=== PATIENT | male | born 1965 | race Caucasian/White ===

== ENCOUNTER 2023-10-31 10:45 | Inpatient (IN) | payer BC ==
[2023-10-31 11:53] LABS: ALT 18 U/L (4-49); AST 22 U/L (17-59); African American GFR (CKD) >90 (>60 ml/min/1.73 sqM); Alkaline Phosphatase 85 U/L (38-126); Anion Gap 9 mmol/L; Blood Urea Nitrogen 14 mg/dL (9-20); Calcium 8.7 mg/dL (8.4-10.2); Carbon Dioxide 23 mmol/L (22-30); Chloride 107 mmol/L (98-107); Glucose 97 mg/dL (74-99); Magnesium 2.1 mg/dL (1.6-2.3); Non-African American GFR(CKD) >90 (>60 ml/min/1.73 sqM); Sodium 139 mmol/L (137-145); Total Bilirubin 0.5 mg/dL (0.2-1.3)
--- NOTE | 2023-10-31 12:12 | CT ---
EXAMINATION TYPE: CT brain wo con DATE OF EXAM: 10/31/2023 COMPARISON: None HISTORY: double vison, weakness x3 days CT DLP: 1118.[address] of the brain was performed. The ventricles, basal cisterns and sulci overlying the cerebral convexities demonstrate mild enlargem ent. There is no evidence for intracranial hemorrhage or sulcal effacement. There is decreased attenuation about the periventricular white matter and deep white matter of both c erebral hemispheres, compatible with chronic small vessel ischemia. Differential diagnosis does inclu de demyelination. No mass effects are seen.No midline shift. Osseous calvarium is intact. If symptoms persist consider MRI. IMPRESSION: 1. Age related atrophic and chronic small vessel ischemic change without acute intracranial process s een at this time.
[2023-10-31 12:19] LABS: HCT 46.6 % (39.0-53.0); HGB 16.3 gm/dL (13.0-17.5); MCH 32.9 pg (25.0-35.0); MCV 93.9 fL (80.0-100.0); Mean Platelet Volume 7.8; Platelet Count 167 k/uL (150-450); RBC 4.96 m/uL (4.30-5.90); RDW 12.7 % (11.5-15.5); WBC 5.3 k/uL (3.8-10.6)
--- NOTE | 2023-10-31 12:41 | ED ---
General Adult HPI - General Chief complaint: Recheck/Abnormal Lab/Rx Stated complaint: High BP, Dizziness Time Seen by Provider: 10/31/23 10:51 Source: patient, RN notes reviewed Mode of arrival: ambulatory Limitations: no limitations - History of Present Illness Initial comments: 58-year-old male presents emergency department from PCPs office for concerns of double vision, URI symptoms, possible high blood pressure. Patient states he does have a history of high blood pressure not on any current medications. He states has been sick over last 1 week in which she states he started developing double vision over the last several days he has noticed when he looks to the left it resolves if he closes his right eye it is not as notable. Patient denie s any current headache, head pressure or any focal weakness he states he has some generalized weakness associated with his URI. Patient states he talked to his PCP regarding his vision disturbance and history of high blood pressure sent over here for evaluation. - Related Data Home Medications Medication Instructions Recorded Confirmed Ascorbic Acid [Vitamin C] 1,000 mg PO DAILY 10/31/23 10/31/23 Cold/Flu Otc(Unknown) 1 tab PO Q6H PRN 10/31/23 10/31/23 Dm/PE/Acetaminophen/Doxylamine 1 cap PO Q6H PRN 10/31/23 10/31/23 [[facility] [facility] Day-Night Cp] Allergies Allergy/AdvReac Type Severity Reaction Status Date / Time No Known Allergies Allergy Verified 10/31/23 12:38 Review of Systems ROS Statement: Those systems with pertinent positive or pertinent negative responses have been documented in the HPI. ROS Other: All systems not noted in ROS Statement are negative. Past Medical History Past Medical History: Hypertension, Rheumatoid Arthritis (RA) Additional Past Medical History / Comment(s): hypoglycemia History of Any Multi-Drug Resistant Organisms: None Reported Past Surgical History: Ear Surgery Additional Past Surgical History / Comment(s): rt ear x 2 Past Anesthesia/Blood Transfusion Reactions: Previous Problems w/ Anesthesia Additional Past Anesthesia/Blood Transfusion Reaction / Comment(s): woke up during surgery Past Psychological History: No Psychological Hx Reported Smoking Status: Current every day smoker Past Alcohol Use History: Occasional Past Drug Use History: None Reported - Past Family History Mother Family Medical History: No Reported History General Exam Limitations: no limitations General appearance: alert, in no apparent distress Head exam: Present: atraumatic, normocephalic, normal inspection Eye exam: Present: normal appearance, PERRL, EOMI. Absent: scleral icterus, conjunctival injection, periorbital swelling ENT exam: Present: normal exam, normal oropharynx, mucous membranes moist Neck exam: Present: normal inspection, full ROM. Absent: tenderness, meningismus, lymphadenopathy Respiratory exam: Present: normal lung sounds bilaterally. Absent: respiratory distress, wheezes, rales, rhonchi, stridor Cardiovascular Exam: Present: regular rate, normal rhythm, normal heart sounds. Absent: systolic murmur, diastolic murmur, rubs, gallop, clicks GI/Abdominal exam: Present: soft, normal bowel sounds. Absent: distended, tenderness, guarding, rebound, rigid Neurological exam: Present: alert, oriented X3, CN II-XII intact, reflexes normal, other (NIH 0, GCS 15). Absent: motor sensory deficit Skin exam: Present: warm, dry, intact, normal color. Absent: rash Course Vital Signs 10/31/23 10/31/23 10/31/23 10:47 11:26 13:00 Temperature 98.8 F Pulse Rate 109 H 101 H 102 H Pulse Rate [ 101 H [employer] ] Respiratory 22 18 18 Rate Blood Pressure 157/79 150/92 140/80 O2 Sat by Pulse 96 95 95 Oximetry 10/31/23 10/31/23 10/31/23 14:54 15:03 16:19 Temperature Pulse Rate 104 H 104 H 96 Pulse Rate [ [employer] ] Respiratory 18 16 18 Rate Blood Pressure 145/91 147/96 155/106 O2 Sat by Pulse 95 96 94 L Oximetry 10/31/23 17:49 Temperature Pulse Rate 88 Pulse Rate [ [employer] ] Respiratory 16 Rate Blood Pressure 142/79 O2 Sat by Pulse 95 Oximetry EKG Findings - EKG Comments: EKG Findings:: EKG performed at 11: 42 sinus rhythm with a rate of 95 NE 160 QRS 116 QT/QTc 348/401 - EKG Results: EKG: interpreted by BALJIT Medical Decision Making - Medical Decision Making Was pt. sent in by a medical professional or institution (, PA, MEDICAL COST CONSULTANT, urgent care, hospital, or detention...) When possible be specific @ -No Did you speak to anyone other than the patient for history (EMS, parent, family, police, friend...)? What history was obtained from this source @ -No Did you review nursing and triage notes (agree or disagree)? Why? @ -I reviewed and agree with nursing and triage notes Were old charts reviewed (outside hosp., previous admission, EMS record, old EKG, old radiological studies, urgent care reports/EKG's, detention records)? Report findings @ -No old charts were reviewed Differential Diagnosis (chest pain, altered mental status, abdominal pain women, abdominal pain men, vaginal bleeding, weakness, fever, dyspnea, syncope, headache, dizziness, GI bleed, back pain, seizure, CVA, palpatations, mental he alth, musculoskeletal)? @ -[CVA, TIA, nerve palsy, diplopia, intracranial hemorrhage EKG interpreted by me (3pts min.). @ -As above X-rays interpreted by me (1pt min.). @ -None done CT interpreted by me (1pt min.). @ -[CT brain showing no acute intracranial hemorrhage or mass effect U/S interpreted by me (1pt. min.). @ -None done What testing was considered but not performed or refused? (CT, X-rays, U/S, labs)? Why? @ -None What meds were considered but not given or refused? Why? @ -None Did you discuss the management of the patient with other professionals (professionals i.e. , PA, MEDICAL COST CONSULTANT, lab, RT, psych nurse, social media analyst, check inspector, teacher, senior major gifts officer, case management social worker)? Give summary @ -[Dr. Lai for admission with consult to neurology to rule out CVA Was smoking cessation discussed for >3mins.? @ -No Was critical care preformed (if so, how long)? @ -No Were there social determinants of health that impacted care today? How? (Homelessness, low income, unemployed, alcoholism, drug addiction, transportation, low edu. Level, literacy, decrease access to med. care, alf, rehab)? @ -No Was there de-escalation of care discussed even if they declined (Discuss DNR or withdrawal of care, Hospice)? DNR status @ -No What co-morbidities impacted this encounter? (DM, HTN, Smoking, COPD, CAD, Cancer, CVA, ARF, Chemo, Hep., AIDS, mental health diagnosis, sleep apnea, morbid obesity)? @ -Hypertension] Was patient admitted / discharged? Hospital course, mention meds given and route, prescriptions, significant lab abnormalities, going to OR and other pertinent info. @ -[Admitted for evaluation for neurology secondary concern of CVA causing patient's diplopia patient has no acute findings on blood work, CT Undiagnosed new problem with uncertain prognosis? @ -No Drug Therapy requiring intensive monitoring for toxicity (Heparin, Nitro, Insulin, Cardizem)? @ -No Were any procedures done? @ -No Diagnosis/symptom? @ -Diplopia, CVA Acute, or Chronic, or Acute on Chronic? @ -Acute Uncomplicated (without systemic symptoms) or Complicated (systemic symptoms)? @ -[Complicated Side effects of treatment? @ -No Exacerbation, Progression, or Severe Exacerbation? @ -No Poses a threat to life or bodily function? How? (Chest pain, [place], [place], pneumonia, PE, COPD, DKA, ARF, appy, cholecystitis, CVA, Diverticulitis, Homicidal, Suicidal, threat to staff... and all critical care pts) @ -No - Lab Data Result diagrams: 10/31/23 11:36 10/31/23 11:36 Lab Results 10/31/23 10/31/23 10/31/23 Range/Units 11:36 11:36 11:36 WBC 5.3 (3.8-10.6) k/uL RBC 4.96 (4.30-5.90) m/uL Hgb 16.3 (13.0-17.5) gm/dL Hct 46.6 (39.0-53.0) % MCV 93.9 (80.0-100.0) fL MCH 32.9 (25.0-35.0) pg MCHC 35.0 (31.0-37.0) g/dL RDW 12.7 (11.5-15.5) % Plt Count 167 (150-450) k/uL MPV 7.8 Neutrophils % (Manual) 53 % Band Neuts % (Manual) 2 % Lymphocytes % (Manual) 40 % Monocytes % (Manual) 5 % Neutrophils # (Manual) 2.90 (1.3-7.7) k/uL Lymphocytes # (Manual) 2.12 (1.0-4.8) k/uL Monocytes # (Manual) 0.27 (0-1.0) k/uL Nucleated RBCs 0 (0-0) /100 WBC Manual Slide Review Performed Sodium 139 (137-145) mmol/L Potassium 4.0 (3.5-5.1) mmol/L Chloride 107 (98-107) mmol/L Carbon Dioxide 23 (22-30) mmol/L Anion Gap 9 mmol/L BUN 14 (9-20) mg/dL Creatinine 0.73 (0.66-1.25) mg/dL Est GFR (CKD-EPI)AfAm >90 (>60 ml/min/1.73 sqM) Est GFR (CKD-EPI)NonAf >90 (>60 ml/min/1.73 sqM) Glucose 97 (74-99) mg/dL Calcium 8.7 (8.4-10.2) mg/dL Magnesium 2.1 (1.6-2.3) mg/dL Total Bilirubin 0.5 (0.2-1.3) mg/dL AST 22 (17-59) U/L ALT 18 (4-49) U/L Alkaline Phosphatase 85 (38-126) U/L Troponin I <0.012 (0.000-0.034) ng/mL Total Protein 7.0 (6.3-8.2) g/dL Albumin 4.0 (3.5-5.0) g/dL TSH (0.465-4.680) mIU/L 10/31/23 Range/Units 11:36 WBC (3.8-10.6) k/uL RBC (4.30-5.90) m/uL Hgb (13.0-17.5) gm/dL Hct (39.0-53.0) % MCV (80.0-100.0) fL MCH (25.0-35.0) pg MCHC (31.0-37.0) g/dL RDW (11.5-15.5) % Plt Count (150-450) k/uL MPV Neutrophils % (Manual) % Band Neuts % (Manual) % Lymphocytes % (Manual) % Monocytes % (Manual) % Neutrophils # (Manual) (1.3-7.7) k/uL Lymphocytes # (Manual) (1.0-4.8) k/uL Monocytes # (Manual) (0-1.0) k/uL Nucleated RBCs (0-0) /100 WBC Manual Slide Review Sodium (137-145) mmol/L Potassium (3.5-5.1) mmol/L Chloride (98-107) mmol/L Carbon Dioxide (22-30) mmol/L Anion Gap mmol/L BUN (9-20) mg/dL Creatinine (0.66-1.25) mg/dL Est GFR (CKD-EPI)AfAm (>60 ml/min/1.73 sqM) Est GFR (CKD-EPI)NonAf (>60 ml/min/1.73 sqM) Glucose (74-99) mg/dL Calcium (8.4-10.2) mg/dL Magnesium (1.6-2.3) mg/dL Total Bilirubin (0.2-1.3) mg/dL AST (17-59) U/L ALT (4-49) U/L Alkaline Phosphatase (38-126) U/L Troponin I (0.000-0.034) ng/mL Total Protein (6.3-8.2) g/dL Albumin (3.5-5.0) g/dL TSH 3.430 (0.465-4.680) mIU/L Disposition Clinical Impression: Diplopia, CVA (cerebral vascular accident) Disposition: ADMITTED IP TO THIS [facility] Time of Disposition: 13:54
--- NOTE | 2023-10-31 13:00 | XR ---
EXAMINATION TYPE: XR chest 2V DATE OF EXAM: 10/31/2023 COMPARISON: NONE TECHNIQUE: PA and lateral views submitted. HISTORY: Cough FINDINGS: The lungs are clear and there is no pneumothorax, pleural effusion, or focal pneumonia. Heart size normal and no overt failure. Osseous structures demonstrate hypertrophic and degenerative changes of the spine. Hyperinflation compatible with COPD. Patchy subsegmental right perihilar density likely re lated to superimposed structures. IMPRESSION: 1. COPD. Patchy right perihilar subsegmental changes most likely related to superimposed structures.
[2023-10-31 13:34] LABS: Band Neutrophils % 2 %; Lymphocytes # (M) 2.12 k/uL (1.0-4.8); Monocytes # (M) 0.27 k/uL (0-1.0); Neutrophils % (M) 53 %; Nucleated Red Blood Cells 0 /100 WBC (0-0); Total Cells Counted 100
[2023-10-31] MEDS ORDERED: NALOXONE 0.4 MG/ML 1 ML VIAL IV PRN (13:55)
[2023-10-31 14:59] LABS: Glucose,Whole Blood 103 mg/dL (70-110)
--- NOTE | 2023-10-31 15:01 | P.HPIM ---
History of Present Illness H&P Date: 10/31/23 Patient is a 58-year-old male with a history of hypertension and nicotine dependence presenting with diplopia. He claims that he has been having upper respiratory infection for about a week, had some fevers and chills, and then 2 days ago started noticing diplopia, seeing things beside each other. He states that when he covers his left eye his diplopia goes away. He denies any right eye pain, no facial droop or slurring of speech. He denies any other weakness or numbness. He does not take any medications for hypertension. He does smoke 1 pack/day and has been doing that for 30 years. No significant alcohol use. No illicit drug use. Denies ever experiencing anything similar. He did have a piece of metal entered his right eye in the 90s, and had surgery during that time. He since recovered from that issue, without any further complications. He did go to his PCP and was recommended to come to the ER. In the ED, temperature was 98.8, pulse 109, respiratory rate 22, blood pressure 157/79, saturating at 96% on room air. WBC 5.3, hemoglobin 16.3, platelet 167, potassium 4, creatinine 0.73, glucose 97, troponin negative. Brain CT did not show any acute process. EKG independently interpreted shows normal sinus rhythm with incomplete right bundle branch block. Chest x-ray independently interpreted, shows no acute opacities, no pleural effusions. Neurology consulted. Patient being admitted for new onset acute diplopia. Pertinent positives and negatives as discussed in HPI, a complete review of systems was performed and all other systems are negative. Patient seen and examined at bedside. Vital signs reviewed General: nontoxic, no distress, appears at stated age Derm: warm, dry Head: atraumatic, normocephalic, symmetric Eyes: Reduced right eye abduction, no lid lag, anicteric sclera, pupils equal round reactive to light ENT: Nose and ears atraumatic Neck: No thyromegaly, supple Mouth: no lip lesion, mucus membranes moist Cardiovascular: S1S2 reg, no murmur, no edema Lungs: clear to auscultation bilateral, no rhonchi, no rales, no wheeze, no accessory muscle use Abdominal: soft, nontender to palpation, no guarding, no appreciable organomegaly Ext: no gross muscle atrophy, muscle strength muscle strength 5 out of 5 in all 4 extremities, no contractures Neuro: CN II-XII grossly intact Psych: Alert, oriented, appropriate affect Assessment/Plan: Active: New onset of acute diplopia 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 Surrogate decision-maker: Significant other CODE STATUS: Full code DVT prophylaxis: Lovenox Anticipated discharge date: Pending clinical course Anticipated discharge place: Pending clinical course A total of 55 minutes was spent on the care of this complex patient more than 50% of the time was spent in counseling and care coordination. Past Medical History Past Medical History: Hypertension, Rheumatoid Arthritis (RA) Additional Past Medical History / Comment(s): hypoglycemia History of Any Multi-Drug Resistant Organisms: None Reported Past Surgical History: Ear Surgery Additional Past Surgical History / Comment(s): rt ear x 2 Past Anesthesia/Blood Transfusion Reactions: Previous Problems w/ Anesthesia Additional Past Anesthesia/Blood Transfusion Reaction / Comment(s): woke up during surgery Past Psychological History: No Psychological Hx Reported Smoking Status: Current every day smoker Past Alcohol Use History: Occasional Past Drug Use History: None Reported - Past Family History Mother Family Medical History: No Reported History Medications and Allergies Home Medications Medication Instructions Recorded Confirmed Type Ascorbic Acid [Vitamin C] 1,000 mg PO DAILY 10/31/23 10/31/23 History Cold/Flu Otc(Unknown) 1 tab PO Q6H PRN 10/31/23 10/31/23 History Dm/PE/Acetaminophen/Doxylamine 1 cap PO Q6H PRN 10/31/23 10/31/23 History [[facility] [facility] Day-Night Cp] Allergies Allergy/AdvReac Type Severity Reaction Status Date / Time No Known Allergies Allergy Verified 10/31/23 12:38 Physical Exam Vitals: Vital Signs Temp Pulse Pulse Resp BP Pulse Ox 10/31/23 14:54 104 H 18 145/91 95 10/31/23 13:00 102 H 18 140/80 95 10/31/23 11:26 101 H 101 H 18 150/92 95 10/31/23 10:47 98.8 F 109 H 22 157/79 96 Intake and Output 10/31/23 10/31/23 10/31/23 06:59 14:59 22:59 Other: Weight 94.801 kg Results CBC & Chem 7: 10/31/23 11:36 10/31/23 11:36
--- NOTE | 2023-10-31 16:20 | CT ---
EXAMINATION TYPE: CT angio head neck DATE OF EXAM: 10/31/2023 COMPARISON: None HISTORY: double vision, weakness, r/o CVA CT DLP: 715.1 mGycm CONTRAST: Performed with IV Contrast, patient injected with 65 mL of Isovue 370. Combination Contrast CTA cervical carotids and [place] CTA cervical carotids with 3-D recons truction Contrast CTA of the cervical carotids was performed 3-D reconstruction imaging obtained at a separate workstation. Right carotid system: Mild plaque is seen of the right common carotid artery. There is mild plaque a lso noted at the carotid bulb and proximal ICA. No significant diameter reduction. ECA is patent. Right vertebral artery appears unremarkable. Left carotid system: Mild plaque is seen of the left common carotid artery. There is mild plaque als o noted at the carotid bulb and proximal ICA. 50% diameter reduction proximal left ICA. ECA is patent . Left vertebral artery appears unremarkable. Changes of chronic sinusitis. IMPRESSION: 1. No significant diameter reduction to account for the patient's symptoms. CTA [place] with 3-D reconstruction Contrast CTA of the [place] was performed 3-D reconstruction imaging obtained at a separate workstation. Vertebrobasilar system as well as intracranial portions of the internal carotid arteries and their ma eric tributaries are patent. I do not see evidence for sizable aneurysm or vascular malformation. Pl ease note MRI provides greater sensitivity and specificity. Visualized brain appears grossly unremar kable. IMPRESSION: 1. No significant abnormality. NASCET criteria was used in interpretation of this exam?
[2023-10-31] MEDS: ACETAMINOPHEN TAB 325 MG TAB PO PRN (19:18)
[2023-10-31] MEDS: ASPIRIN 81 MG PO STA (22:39)
[2023-11-01] MEDS: ASPIRIN 81 MG PO SCH (08:14)
[2023-11-01] MEDS: ENOXAPARIN 40 MG/0.4 ML SYRINGE SQ SCH (08:15)
--- NOTE | 2023-11-01 08:19 | P.CNNES ---
History of Present Illness Consult date: 10/31/23 Requesting physician: Carlos Mckee Reason for Consult: CVA?, Diplopia History of Present Illness: Patient is a 58-year-old right-handed male with history of hypertension, tobacco use came to the hospital with new onset of diplopia. This started 2 days ago on Tuesday morning when he woke up at 6 AM noticed double vision looking straight and to the right. Last week from Tuesday through Tuesday he suffered from cold and fever and felt it was from bed, therefore aborted. He denies any other symptoms like slurred speech, droopy face or loss of vision. He noticed that when he was walking, felt left leg was slightly numb, pointing to behind the left knee. Did not involve the foot or the rest of the leg. Patient states that the double vision is throwing off balance and he feels slightly nauseous but no vomiting. Vital signs on arrival blood pressure 157/79, pulse rate 109, temperature 98.9. Blood test shows normal CBC, normal CMP, troponin. EKG shows sinus rhythm. Chest x-ray with COPD. Patchy right perihilar subsegmental changes, most likely related to superimposed structures. Patient has history of hypertension, denies any diabetes or problems with cholesterol. He states he runs low sugars. Patient has smoked 1 pack/day for 30 years. Denies any alcohol or marijuana use or any drugs. 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 Review of Systems Constitutional: Denies chills, Denies fever, Denies weight gain, Denies weight loss Eyes: right blurred vision, bilateral diplopia, denies pain, denies loss of vision Ears: right: decreased hearing, deny: ear discharge Ears, nose, mouth and throat: Denies headache, Denies sore throat, Denies vertigo Cardiovascular: Reports lightheadedness (when walking), Denies chest pain, Denies shortness of breath Respiratory: Denies cough, Denies excessive sputum Gastrointestinal: Denies abdominal pain, Denies diarrhea, Denies nausea, Denies vomiting Genitourinary: Denies dysuria, Denies incontinence Musculoskeletal: Denies low back pain, Denies myalgias, Denies neck pain Integumentary: Denies pruritus, Denies rash Neurological: Reports as per HPI Psychiatric: Denies anxiety, Denies depression Endocrine: Denies fatigue, Denies weight change Hematologic/Lymphatic: Denies easy bleeding, Denies easy bruising Past Medical History Past Medical History: Hypertension, Rheumatoid Arthritis (RA) Additional Past Medical History / Comment(s): hypoglycemia History of Any Multi-Drug Resistant Organisms: None Reported Past Surgical History: Ear Surgery Additional Past Surgical History / Comment(s): rt ear x 2 Past Anesthesia/Blood Transfusion Reactions: Previous Problems w/ Anesthesia Additional Past Anesthesia/Blood Transfusion Reaction / Comment(s): woke up during surgery Past Psychological History: No Psychological Hx Reported Smoking Status: Current every day smoker Past Alcohol Use History: Occasional Past Drug Use History: None Reported - Past Family History Mother Family Medical History: No Reported History Medications and Allergies Home Medications Medication Instructions Recorded Confirmed Type Ascorbic Acid [Vitamin C] 1,000 mg PO DAILY 10/31/23 10/31/23 History Cold/Flu Otc(Unknown) 1 tab PO Q6H PRN 10/31/23 10/31/23 History Dm/PE/Acetaminophen/Doxylamine 1 cap PO Q6H PRN 10/31/23 10/31/23 History [[facility] Plus Day-Night Cp] Allergies Allergy/AdvReac Type Severity Reaction Status Date / Time No Known Allergies Allergy Verified 10/31/23 12:38 Physical Examination - Vital Signs Vital Signs: Vital Signs Temp Pulse Pulse Resp BP BP Pulse Ox 10/31/23 20:00 92 18 148/79 98 10/31/23 18:19 96 16 140/93 96 10/31/23 17:49 88 16 142/79 95 10/31/23 16:19 96 18 155/106 94 L 10/31/23 15:03 104 H 16 147/96 96 10/31/23 14:54 104 H 18 145/91 95 10/31/23 13:00 102 H 18 140/80 95 10/31/23 11:26 101 H 101 H 18 150/92 95 10/31/23 10:47 98.8 F 109 H 22 157/79 96 Intake and Output 10/31/23 10/31/23 10/31/23 06:59 14:59 22:59 Other: Weight 94.801 kg 94.801 kg Patient is a middle aged male, very pleasant, in no acute distress. Patient is alert awake oriented to time place and person. Speech and language functions are normal. Patient can name and repeat very well. No aphasia or dysarthria. Attention, concentration and fund of knowledge is adequate. On cranial nerve examination, pupils are equal, round and reacting to light, visual galvin are full on confrontation, with no neglect on double simultaneous stimulation. Extraocular muscles revealed partial right 6th nerve palsy. There is no nystagmus. Face is symmetric, tongue protrudes to the midline. Palatal elevation and sensation normal, hearing and shoulder shrug normal, facial sensation normal. On muscle strength testing, there is no pronator drift and the strength is normal in arms and legs distally and proximally. Deep tendon reflexes are symmetric 1 at the biceps, 1 brachioradialis, 1+ to 2 at the knees, 1 ankles and plantars are withdrawal bilaterally. Sensory to touch is equal with no neglect on double simultaneous stimulation. Cerebellar function showed no ataxia for [id number] testing. No dysdiadochokinesia. No ataxia for [id number] testing on either side. Tone and bulk of muscles normal. Gait deferred.. On general examination, there is no carotid bruit or murmur, S1-S2 audible. Chest is clear on consultation. Abdomen is soft nontender. No organomegaly, bowel sounds present. Peripheral pulses are present. No peripheral edema. 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 Exact etiology uncertain, but with newly diagnosed mild diabetes, may be contributing to cranial nerve palsy. * New onset diabetes with A1c 6.9 * Hypertension * Tobacco use Plan: * Agree with checking MRI of the brain/orbits to evaluate for secondary cause of diplopia. * CTA of head and neck revealed no significant diameter reduction to account for the patient's symptoms. CTA of the head normal. * Patient to be given aspirin 324 mg x 1 dose and will start aspirin 81 mg daily from tomorrow. * Hemoglobin A1c 6.9, suggestive of mild diabetes. Recommend dietary modificati on, healthy lifestyles. Further management as per IM. * Fasting lipid panel * B12 is normal 516, TSH 3.43. * DVT prophylaxis: Lovenox 40 mg subcu daily initiated by IM. * Neurology will follow. Thank you for the consult.
--- NOTE | 2023-11-01 10:48 | MR ---
EXAMINATION TYPE: MR brain/orbits wo con DATE OF EXAM: 11/01/2023 10:40 AM CLINICAL INDICATION:Male, 58 years old with history of diplopia; Diplopia COMPARISON: 10/31/2023 TECHNIQUE: Multi planar, multi sequence imaging was performed through the orbits/face. No contrast w as utilized. FINDINGS, ORBITS: The globes appear symmetrical. Orbital contents are intact. Signal intensity of th e optic nerves are within normal limits. The intraorbital fat appears preserved. Both lacrimal glan ds are unremarkable. The extraocular muscles appear symmetric. FINDINGS, BRAIN: The mack-white junctions, ventricular system, and cisterns do appear unremarkable. Diffusion-weighted imaging shows no evidence of restricted diffusion. Patchy areas of high T2 signa l intensity are seen within the periventricular white matter. Cavernous sinus is within normal limit s. The bone marrow signal is within normal limits. Paranasal sinuses and mastoid air cells: Moderate scattered paranasal sinus disease. High T2 signal w ithin the mastoid air cells bilaterally. Visualized orbits: Orbital contents are intact. IMPRESSION: Limited noncontrast exam. 1. No evidence of intraorbital mass or significant abnormality. 2. No evidence of intracranial mass nor acute/subacute CVA accident. 3. Nonspecific white matter changes are identified likely small vessel ischemic disease. 4. Moderate paranasal sinus disease. 5. Bilateral mastoid air cell effusions.
[2023-11-01 12:34] VITALS: RESP 18; TEMP 97.5
--- NOTE | 2023-11-01 13:41 | P.PN ---
Subjective Progress Note Date: 11/01/23 Hospital Course: 58-year-old male with a history of hypertension and nicotine dependence presenting with diplopia. In the ED, temperature was 98.8, pulse 109, respiratory rate 22, blood pressure 157/79, saturating at 96% on room air. WBC 5.3, hemoglobin 16.3, platelet 167, potassium 4, creatinine 0.73, glucose 97, troponin negative. Brain CT did not show any acute process. EKG independently interpreted shows normal sinus rhythm with incomplete right bundle branch block. Chest x-ray independently interpreted, shows no acute opacities, no pleural effusions. Neurology consulted. Patient being admitted for new onset acute diplopia. Likely has partial right 6th cranial nerve palsy. CT head and neck angio did not show any significant diameter reduction to account for patient's symptoms, no significant abnormalities noted. MRI brain/orbits did not show any evidence of intraorbital mass or significant abnormality or any evidence of intracranial mass or sick acute/subacute CVA, nonspecific white matter changes likely small vessel ischemic disease, moderate paranasal sinus disease, bilater al mastoid air cell effusions. Subjective: Patient seen and examined at bedside. No acute events overnight. Pertinent positives and negatives as discussed above, a complete review of systems was performed and all other systems are negative. Vitals Signs Reviewed. General: Nontoxic, no distress, appears at stated age Derm: Warm, dry Head: Atraumatic, normocephalic, symmetric Eyes: Reduced right eye abduction, no lid lag, anicteric sclera, pupils equal round reactive to light Mouth: No lip lesion, mucus membranes moist Cardiovascular: S1S2 reg, no murmur Lungs: CTA bilateral, no rhonchi, no rales, no accessory muscle use Abdominal: Soft, nontender to palpation, no guarding, no appreciable organomegaly Ext: No gross muscle atrophy, no edema, no contractures Neuro: CN II-XI grossly intact, no focal neuro deficits Psych: Alert, oriented, appropriate affect Data Reviewed Today: Pertinent Labs: TSH 2.43, B12 516, A1c 6.9, lipid panel still pending Imaging: MRI brain/orbits did not show any evidence of intraorbital mass or significant abnormality or any evidence of intracranial mass or sick acute/subacute CVA, nonspecific white matter changes likely small vessel ischemic disease, moderate paranasal sinus disease, bilateral mastoid air cell effusions. Assessment and Plan: New onset of acute diplopia Partial right 6th cranial nerve palsy Hypertension New onset type 2 diabetes, A1c 6.9 Nicotine dependence -Neurology following, continue aspirin 81 mg daily, atorvastatin 20 mg daily -Lipid panel still pending -Started on amlodipine 5 mg daily -Also started on metformin 500 twice daily -Counseled regarding smoking cessation DVT ppx: Lovenox Code status: Full code Anticipated discharge place: Pending clinical course Anticipated discharge time: Pending clinical course Objective - Vital Signs Vital signs: Vital Signs Temp 97.5 F L 11/01/23 12:09 Pulse 79 11/01/23 12:09 Resp 18 11/01/23 12:09 BP 150/76 11/01/23 12:09 Pulse Ox 96 11/01/23 12:09 FiO2 Intake & Output 10/31/23 11/01/23 11/01/23 18:59 06:59 18:59 Intake Total 120 128 Balance 120 128 Weight 94.801 kg 94.801 kg Intake: IV 10 Invasive Line 1 10 Oral 120 118 Other: Voiding Method Toilet # Voids 1 - Labs CBC & Chem 7: 10/31/23 11:36 10/31/23 11:36 Labs: Abnormal Lab Results - Last 24 Hours (Table) 10/31/23 Range/Units 11:36 Hemoglobin A1c 6.9 H (<=6.0) %
[2023-11-01] MEDS: amLODIPine 5 MG TAB PO SCH (14:31)
--- NOTE | 2023-11-01 14:35 | P.DS ---
Providers Date of admission: 10/31/23 14:27 Expected date of discharge: 11/01/23 Attending physician: Roosevelt Lai MD Consults: 10/31/23 13:55 Consult Physician Urgent Consulting Provider: Shantelle Espana Consult Reason/Comments: CVA?, Diplopia Do you want consulting provider notified?: Yes Primary care physician: Prosper Bustos Hospital Course: Discharge Diagnosis: New onset of acute diplopia Partial right 6th cranial nerve palsy Hypertension New onset type 2 diabetes, A1c 6.9 Nicotine dependence Hospital Course: 58-year-old male with a history of hypertension and nicotine dependence presenting with diplopia. In the ED, temperature was 98.8, pulse 109, respiratory rate 22, blood pressure 157/79, saturating at 96% on room air. WBC 5.3, hemoglobin 16.3, platelet 167, potassium 4, creatinine 0.73, glucose 97, troponin negative. Brain CT did not show any acute process. EKG independently interpreted shows normal sinus rhythm with incomplete right bundle branch block. Chest x-ray independently interpreted, shows no acute opacities, no pleural effusions. Neurology consulted. Patient being admitted for new onset acute diplopia. Likely has partial right 6th cranial nerve palsy. CT head and neck angio did not show any significant diameter reduction to account for patient's symptoms, no significant abnormalities noted. MRI brain/orbits did not show any evidence of intraorbital mass or significant abnormality or any evidence of intracranial mass or sick acute/subacute CVA, nonspecific white matter changes likely small vessel ischemic disease, moderate paranasal sinus disease, bilateral mastoid air cell effusions. Patient needs close follow-up with ophthalmology. Patient seen and examined at bedside. Vital signs reviewed and stable. General: Nontoxic, no distress, appears at stated age Derm: Warm, dry Head: Atraumatic, normocephalic, symmetric Eyes: Reduced right eye abduction, no lid lag, anicteric sclera, pupils equal round reactive to light Mouth: No lip lesion, mucus membranes moist Cardiovascular: S1S2 reg, no murmur Lungs: CTA bilateral, no rhonchi, no rales, no accessory muscle use Abdominal: Soft, nontender to palpation, no guarding, no appreciable organomegaly Ext: No gross muscle atrophy, no edema, no contractures Neuro: CN II-XI grossly intact, no focal neuro deficits Psych: Alert, oriented, appropriate affect A total of 33 minutes of time were spent preparing this complex discharge summary. Patient was discharged on 11/01/2023 at 1434. Patient Condition at Discharge: Stable Plan - Discharge Summary Discharge Rx Participant: No New Discharge Prescriptions: New metFORMIN HCL [Glucophage] 500 mg PO BID-W/MEALS #120 tab Aspirin 81 mg PO DAILY #90 tab Atorvastatin [Lipitor] 20 mg PO HS #90 tab amLODIPine [Norvasc] 5 mg PO DAILY #90 tab Continue Ascorbic Acid [Vitamin C] 1,000 mg PO DAILY Discontinued Dm/PE/Acetaminophen/Doxylamine [[facility]-[place] Plus Day-Night Cp] 1 cap PO Q6H PRN PRN Reason: Cold Symptoms Cold/Flu Otc(Unknown) 1 tab PO Q6H PRN PRN Reason: Cold Symptoms Discharge Medication List Ascorbic Acid [Vitamin C] 1,000 mg PO DAILY 10/31/23 [History] Aspirin 81 mg PO DAILY #90 tab 11/01/23 [Rx] Atorvastatin [Lipitor] 20 mg PO HS #90 tab 11/01/23 [Rx] amLODIPine [Norvasc] 5 mg PO DAILY #90 tab 11/01/23 [Rx] metFORMIN HCL [Glucophage] 500 mg PO BID-W/MEALS #120 tab 11/01/23 [Rx] Follow up Appointment(s)/Referral(s): Prosper Bustos MD [Primary Care Provider] - 1-2 days Sameer Taylor MD [STAFF PHYSICIAN] - 1 Week Patient Instructions/Handouts: Diplopia (DC) Activity/Diet/Wound Care/Special Instructions: Please see ophthalmology and PCP. Discharge Disposition: HOME SELF-CARE
[2023-11-01 15:46] LABS: Chol/HDL Ratio 5.35 Ratio; LDL Cholesterol,Calculated 77.2 mg/dL (0.0-131.0)
[2023-11-01 16:00] VITALS: BP 139/75; PULSE 81
[2023-11-01 16:05] LABS: Hepatitis B Surface Antigen Nonreactive; Hepatitis C IgG Antibody Nonreactive
[2023-11-01] MEDS ORDERED: metFORMIN 500 MG TAB PO SCH (17:30)
[2023-11-01] MEDS ORDERED: ATORVASTATIN 20 MG TAB PO SCH (21:00)
== END 2023-11-01 16:10 | disposition home or self-care (01) | DRG 123 ==
LOC: EC 10:45 → 3SCARD 14:27
PROVIDERS: ADMIT Student in an Organized Health Care Education/Training Program; ATTEND Student in an Organized Health Care Education/Training Program
DX: H49.21 Sixth [abducent] nerve palsy, right eye (principal); E11.9 Type 2 diabetes mellitus without complications; M06.9 Rheumatoid arthritis, unspecified; I10 Essential (primary) hypertension; I45.10 Unspecified right bundle-branch block; J06.9 Acute upper respiratory infection, unspecified; Z28.310 Unvaccinated for COVID-19; H53.2 Diplopia; F17.210 Nicotine dependence, cigarettes, uncomplicated; Z71.6 Tobacco abuse counseling; Z79.899 Other long term (current) drug therapy
CPT/HCPCS: 36415; 70450; 70496; 70498; 70540; 70551; 71046; 80053; 80061; 82607; 83036; 83735; 84443; 84484; 85025; 86701; 86803; 87340; 93005; 99285